=== PATIENT | female | born 1980 | race Two or more races ===

== ENCOUNTER 2018-02-11 20:45 | Emergency (ER) | payer OTHER ==
[2018-02-11] MEDS: IBUPROFEN 800 MG TABLET. PO (21:30)
[2018-02-11 22:27] LABS: BILIRUBIN,URINE NEGATIVE (NEG); CLARITY,URINE CLEAR; GLUCOSE,URINE NEGATIVE (NEG); NITRITE,URINE NEGATIVE (NEG); PROTEIN,URINE NEGATIVE (NEG-TRACE); UROBILINOGEN,URINE 0.2 mg/dL (0.2 mg/dL)
[2018-02-11 22:30] LABS: NEG OBC UR NEG; POS OBC UR POS; U PREG PATIENT NEGATIVE (NEG)
[2018-02-11 22:31] LABS: COLOR,URINE STRAW
[2018-02-11 22:34] LABS: RBC,URINE 0 /HPF (0-2)
[2018-02-11 22:35] LABS: BACTERIA,URINE MANY /HPF (0-FEW); SQUAMOUS EPITHELIAL CELL,UR MANY /LPF
== END 2018-02-11 23:03 | disposition home or self-care (01) ==
LOC: ER 20:45
DX: N39.0 Urinary tract infection, site not specified (principal); E11.9 Type 2 diabetes mellitus without complications; I10 Essential (primary) hypertension
CPT/HCPCS: 72100; 81001; 81025; 87086; 99285-25